=== PATIENT | female | born 2005 | race Two or more races ===

== ENCOUNTER 2024-12-31 07:44 | Inpatient (IN) | payer BC ==
[2024-12-31] VITALS (33 sets, daily range): BP systolic 114–147; BP diastolic 70–98; PULSE 105–125; RESP 15–35; TEMP 36.4–37.5; O2SAT 96–100
[~2024-12-31] VITALS: Ht 170.2 cm; Wt 68.0 kg
[2024-12-31] MEDS ORDERED: DEXTROSE 50% WATER 50ML SYRINGE IV PRN (08:00)
[2024-12-31] MEDS ORDERED: BLOOD SUGAR DIAGNOSTIC STRIP TEST PRN ×2 (08:00→11:30)
[2024-12-31] MEDS: SODIUM CHLORIDE 0.9% 1,000 ML IV ONE (08:36)
[2024-12-31 08:37] LABS: BASOPHILS % 0.3 % (0.0-2.0); DIFFERENTIAL COMMENT 0; EOSINOPHILS % 0.1 % (0.0-5.0); HEMATOCRIT. 46.9 % (36.0-48.0); HEMOGLOBIN. 14.8 g/dL (12.0-16.0); LYMPHOCYTES % 7.9 % (20.0-50.0); MEAN CORPUSCULAR HEMOGLOBIN 31.6 pg (28.0-32.0); MEAN CORPUSCULAR HGB CONC 31.6 g/dL (31.0-37.0); MEAN CORPUSCULAR VOLUME 100.1 fL (81.0-99.0); MONOCYTES % 4.2 % (2.0-8.0); NEUTROPHILS % 87.5 % (40.0-76.0); PLATELET 666 x1000/uL (130-400); RED BLOOD CELL COUNT 4.69 mill/uL (4.2-5.4); RED CELL DISTRIBUTION WIDTH 14.8 % (11.6-14.6); WHITE BLOOD COUNT 24.5 x1000/uL (4.5-11.0)
[2024-12-31 08:39] LABS: CHLORIDE 102 mEq/L (98-107); POTASSIUM 4.5 mEq/L (3.5-5.1); SODIUM 133 mEq/L (136-145)
[2024-12-31] MEDS: BLOOD SUGAR DIAGNOSTIC STRIP TEST SCH ×2 (08:44→11:28)
[2024-12-31 08:47] LABS: PHOSPHORUS 5.1 mg/dL (2.5-4.9)
[2024-12-31] MEDS: SODIUM CHLORIDE 0.9% (SEPSIS BOLUS) IV ONE (09:00)
[2024-12-31] MEDS ORDERED: VANCOMYCIN 1000MG/250ML 250 ML IV SCH (09:00)
[2024-12-31 09:14] LABS: CHLORIDE 102 mEq/L (98-107); POTASSIUM 4.8 mEq/L (3.5-5.1); SODIUM 134 mEq/L (136-145)
[2024-12-31 09:15] LABS: CALCIUM 9.6 mg/dL (8.7-10.4)
[2024-12-31 09:20] LABS: CREATININE 1.4 mg/dL (0.6-1.0); UREA NITROGEN BLOOD 9 mg/dL (9-23)
[2024-12-31 09:21] LABS: CARBON DIOXIDE < 10 mEq/L (21-32); LACTIC ACID 2.7 mmol/L (0.4-2.0)
[2024-12-31 09:22] LABS: ALANINE AMINOTRANSFERASE 20 IU/L (10-49); ALBUMIN 5.1 g/dL (3.2-4.8); ASPARTATE AMINOTRANSFERASE 22 IU/L (<34); BILIRUBIN TOTAL 0.4 mg/dL (0.1-1.0); PROTEIN TOTAL 9.2 g/dL (6.0-8.3)
[2024-12-31 09:25] LABS: CLARITY URINE CLEAR (CLEAR); COLOR URINE YELLOW (YELLOW); GLUCOSE URINE 3+ (NEGATIVE); KETONES URINE 4+ (NEGATIVE); LEUKOCYTE ESTERASE URINE 1+ (NEGATIVE); NITRITE URINE NEGATIVE (NEGATIVE); OCCULT BLOOD URINE 1+ (NEGATIVE); PROTEIN URINE 2+ (NEGATIVE); SPECIFIC GRAVITY URINE 1.023 (1.005-1.030); UROBILINOGEN URINE 0.2 E.U./dL (0.2-1.0)
[2024-12-31 09:29] LABS: BG BASE EXCESS -28.8 mmol/L (-2.0-3.0); BG CARBOXYHEMOGLOBIN 0.7 % (0.5-1.5); BG DEOXYHEMOGLOBIN 1.4 % (0.0-5.0); BG FRACTION INSPIRED OXYGEN 28; BG HCO3 ACT 2.3 mmol/L (21.0-28.0); BG METHEMOGLOBIN 0.2 % (0.5-1.5); BG OXYGEN SATURATION 98.6 % (94.0-98.0); BG OXYHEMOGLOBIN 97.7 % (94.0-98.0); BG PCO2 11.2 mmHg (32.0-45.0); BG PH 6.922 (7.350-7.450); BG PO2 152.9 mmHg (83.0-108.0); BG SAMPLE SITE RIGHT RADIAL; BG TOTAL HEMOGLOBIN 14.4 g/dL (12.0-16.0); BG VENT MODE NASAL CANNULA
[2024-12-31 09:29] LABS: CARBON DIOXIDE < 10 mEq/L (21-32); GLUCOSE 585 mg/dL (70-105)
[2024-12-31] MEDS ORDERED: INSULIN REGULAR (DRIP) 100 UNITS in SODIUM CHLORIDE 0.9% 99 ML IV SCH (09:30)
[2024-12-31 09:38] LABS: BACTERIA URINE TRACE; RBC URINE 0-2 /hpf (0-2); SQUAMOUS EPITHELIAL CELL URINE 2+ /lpf (RARE/1+); YEAST URINE RARE
[2024-12-31 09:40] LABS: BETA HYDROXYBUTYRATE 9.1 mMol/L (0.0-0.3)
[2024-12-31] MEDS ORDERED: PIPERACILLIN/TAZO 3.375G/100ML 100 ML IV SCH (10:00)
[2024-12-31] MEDS: ONDANSETRON HCL 4MG/2ML INJ IV ONE (10:17)
[2024-12-31] MEDS: INSULIN REGULAR 100U/100ML PMX 100 ML IV ONE (10:55)
[2024-12-31] MEDS: PIPERACILLIN/TAZO 3.375G/50ML 50 ML IV SCH (11:22)
[2024-12-31] MEDS: VANCOMYCIN 1G PREMIX 250 ML IV SCH (11:26)
[2024-12-31] MEDS: SODIUM CHLORIDE 0.9% 1,000 ML IV SCH (11:28)
[2024-12-31] MEDS ORDERED: SODIUM BICARBONATE 8.4% 50MEQ/50ML SYR IV NR (11:45)
[2024-12-31 11:53] LABS: BG BASE EXCESS -31.6 mmol/L (-2.0-3.0); BG CARBOXYHEMOGLOBIN 0.3 % (0.5-1.5); BG DEOXYHEMOGLOBIN 1.4 % (0.0-5.0); BG FRACTION INSPIRED OXYGEN 28; BG HCO3 ACT 1.9 mmol/L (21.0-28.0); BG METHEMOGLOBIN 0.2 % (0.5-1.5); BG OXYGEN SATURATION 98.6 % (94.0-98.0); BG OXYHEMOGLOBIN 98.1 % (94.0-98.0); BG PCO2 11.9 mmHg (32.0-45.0); BG PH 6.813 (7.350-7.450); BG PO2 158.5 mmHg (83.0-108.0); BG SAMPLE SITE RIGHT RADIAL; BG TOTAL HEMOGLOBIN 14.7 g/dL (12.0-16.0); BG VENT MODE NASAL CANNULA
[2024-12-31] MEDS: SODIUM BICARBONATE 8.4% 50MEQ/50ML SYR IV ONE (13:06)
[2024-12-31 14:05] LABS: CHLORIDE 113 mEq/L (98-107); SODIUM 140 mEq/L (136-145)
[2024-12-31] MEDS: KCL 20MEQ/100ML PREMIX 100 ML IV PRN (14:08)
[2024-12-31 14:11] LABS: CREATININE 1.1 mg/dL (0.6-1.0); GLUCOSE 352 mg/dL (70-105); UREA NITROGEN BLOOD 7 mg/dL (9-23)
[2024-12-31 14:13] LABS: PHOSPHORUS 3.3 mg/dL (2.5-4.9)
[2024-12-31 14:40] LABS: CARBON DIOXIDE < 10 mEq/L (21-32)
[2024-12-31] MEDS: MAGNESIUM 2 G PREMIX 50 ML IV PRN (15:45)
[2024-12-31] MEDS: DEXT 5%/0.9% NACL 1,000 ML IV SCH (15:46)
[2024-12-31 16:37] LABS: CHLORIDE 113 mEq/L (98-107); POTASSIUM 3.8 mEq/L (3.5-5.1); SODIUM 141 mEq/L (136-145)
[2024-12-31 16:39] LABS: CALCIUM 7.8 mg/dL (8.7-10.4)
[2024-12-31 16:43] LABS: GLUCOSE 269 mg/dL (70-105)
[2024-12-31 16:44] LABS: UREA NITROGEN BLOOD 7 mg/dL (9-23)
[2024-12-31] MEDS: POTASSIUM CHLORIDE 20MEQ/PACKET PO NR (17:00)
[2024-12-31 17:01] LABS: CARBON DIOXIDE < 10 mEq/L (21-32)
[2024-12-31] MEDS: INSULIN REGULAR 100U/100ML PMX 100 ML IV SCH (18:09)
[2024-12-31] MEDS: SODIUM BICARBONATE 8.4% 50MEQ/50ML SYR IV NR (21:04)
[2024-12-31 22:15] LABS: CHLORIDE 118 mEq/L (98-107); POTASSIUM 3.3 mEq/L (3.5-5.1); SODIUM 144 mEq/L (136-145)
[2024-12-31 22:17] LABS: CALCIUM 8.4 mg/dL (8.7-10.4)
[2024-12-31 22:21] LABS: CREATININE 0.9 mg/dL (0.6-1.0); GLUCOSE 163 mg/dL (70-105); UREA NITROGEN BLOOD 6 mg/dL (9-23)
[2024-12-31 22:24] LABS: CARBON DIOXIDE 10 mEq/L (21-32)
[2024-12-31 22:28] LABS: LACTIC ACID 2.4 mmol/L (0.4-2.0)
[2024-12-31 22:56] LABS: PHOSPHORUS 0.7 mg/dL (2.5-4.9)
[2024-12-31] MEDS: POTASSIUM CHLORIDE 40 MEQ in SODIUM CHLORIDE 0.9% 230 ML IV PRN (23:17)
[2024-12-31] MEDS: POTASSIUM PHOSPHATE 30 MMOL in DEXT 5% WATER 490 ML IV NR (23:46)
[2025-01-01] VITALS (58 sets, daily range): BP systolic 107–135; BP diastolic 68–97; PULSE 95–122; RESP 12–23; TEMP 36.6–37.2; O2SAT 94–100
[2025-01-01 01:10] LABS: CHLORIDE 118 mEq/L (98-107); POTASSIUM 3.2 mEq/L (3.5-5.1); SODIUM 145 mEq/L (136-145)
[2025-01-01 01:11] LABS: CALCIUM 7.5 mg/dL (8.7-10.4); CARBON DIOXIDE 15 mEq/L (21-32)
[2025-01-01 01:16] LABS: CREATININE 0.8 mg/dL (0.6-1.0); GLUCOSE 129 mg/dL (70-105); UREA NITROGEN BLOOD 7 mg/dL (9-23)
[2025-01-01 01:45] LABS: PHOSPHORUS 0.6 mg/dL (2.5-4.9)
[2025-01-01 05:50] LABS: BASOPHILS % 0.1 % (0.0-2.0); EOSINOPHILS % 0.1 % (0.0-5.0); HEMATOCRIT. 32.7 % (36.0-48.0); LYMPHOCYTES % 9.2 % (20.0-50.0); MEAN CORPUSCULAR HEMOGLOBIN 31.9 pg (28.0-32.0); MEAN CORPUSCULAR HGB CONC 33.6 g/dL (31.0-37.0); MEAN CORPUSCULAR VOLUME 94.9 fL (81.0-99.0); MEAN PLATELET VOLUME 7.4 fl (7.4-10.4); MONOCYTES % 11.2 % (2.0-8.0); NEUTROPHILS % 79.4 % (40.0-76.0); PLATELET 400 x1000/uL (130-400); RED BLOOD CELL COUNT 3.45 mill/uL (4.2-5.4); WHITE BLOOD COUNT 14.5 x1000/uL (4.5-11.0)
[2025-01-01 06:27] LABS: CALCIUM 7.6 mg/dL (8.7-10.4); CHLORIDE 118 mEq/L (98-107); POTASSIUM 3.7 mEq/L (3.5-5.1); SODIUM 145 mEq/L (136-145)
[2025-01-01 06:28] LABS: CARBON DIOXIDE 15 mEq/L (21-32)
[2025-01-01 06:33] LABS: CREATININE 0.7 mg/dL (0.6-1.0); GLUCOSE 244 mg/dL (70-105); UREA NITROGEN BLOOD 6 mg/dL (9-23)
[2025-01-01 06:37] LABS: PHOSPHORUS 1.1 mg/dL (2.5-4.9)
[2025-01-01] MEDS: SODIUM PHOSPHATE 15 MMOL in SODIUM CHLORIDE 0.9% 245 ML IV PRN (06:39)
[2025-01-01] MEDS: FAMOTIDINE 20MG/2ML VIAL IV SCH (08:08)
[2025-01-01] MEDS ORDERED: PANTOPRAZOLE SODIUM 40 MG/VIAL IV SCH (09:00)
[2025-01-01 09:15] LABS: BG BASE EXCESS -9.8 mmol/L (-2.0-3.0); BG CARBOXYHEMOGLOBIN 0.8 % (0.5-1.5); BG DEOXYHEMOGLOBIN 1.5 % (0.0-5.0); BG HCO3 ACT 14.1 mmol/L (21.0-28.0); BG METHEMOGLOBIN 0.3 % (0.5-1.5); BG OXYGEN SATURATION 98.5 % (94.0-98.0); BG OXYHEMOGLOBIN 97.4 % (94.0-98.0); BG PCO2 25.5 mmHg (32.0-45.0); BG PH 7.359 (7.350-7.450); BG PO2 111.2 mmHg (83.0-108.0); BG SAMPLE SITE RIGHT RADIAL; BG TOTAL HEMOGLOBIN 11.5 g/dL (12.0-16.0); BG TOTAL RESPIRATORY RATE 18 b/min; BG VENT MODE ROOM AIR
[2025-01-01 09:23] LABS: CHLORIDE 118 mEq/L (98-107); POTASSIUM 3.2 mEq/L (3.5-5.1); SODIUM 144 mEq/L (136-145)
[2025-01-01 09:24] LABS: CARBON DIOXIDE 16 mEq/L (21-32)
[2025-01-01 09:25] LABS: CALCIUM 7.3 mg/dL (8.7-10.4)
[2025-01-01 09:29] LABS: CREATININE 0.6 mg/dL (0.6-1.0); GLUCOSE 283 mg/dL (70-105)
[2025-01-01 09:30] LABS: UREA NITROGEN BLOOD < 5 mg/dL (9-23)
[2025-01-01 09:32] LABS: PHOSPHORUS 1.3 mg/dL (2.5-4.9)
[2025-01-01] MEDS: MAGNESIUM 2 G PREMIX 50 ML IV NR (10:14)
[2025-01-01] MEDS: POTASSIUM CHLORIDE 20MEQ TABLET SR PO NR ×2 (10:14→23:42)
[2025-01-01] MEDS: POTASSIUM PHOSPHATE 15 MMOL in DEXT 5% WATER 245 ML IV NR (11:16)
[2025-01-01] MEDS ORDERED: DEXTROSE 50% WATER 50ML SYRINGE IV PRN (11:30)
[2025-01-01] MEDS: BLOOD SUGAR DIAGNOSTIC STRIP TEST SCH (11:33)
[2025-01-01] MEDS: INSULIN LISPRO 100 UNITS/ML SUBCUT SCH ×2 (11:37→11:38)
[2025-01-01] MEDS: INSULIN GLARGINE 100 UNITS/ML SUBCUT SCH (11:37)
[2025-01-01] MEDS: LEVOFLOXACIN 750MG PREMIX 150 ML IV SCH (16:02)
[2025-01-01 22:31] LABS: CHLORIDE 110 mEq/L (98-107); POTASSIUM 3.2 mEq/L (3.5-5.1); SODIUM 140 mEq/L (136-145)
[2025-01-01 22:32] LABS: CALCIUM 8.3 mg/dL (8.7-10.4); CARBON DIOXIDE 18 mEq/L (21-32)
[2025-01-01 22:37] LABS: CREATININE 0.6 mg/dL (0.6-1.0); GLUCOSE 138 mg/dL (70-105); UREA NITROGEN BLOOD < 5 mg/dL (9-23)
[2025-01-01 23:48] LABS: PHOSPHORUS 1.6 mg/dL (2.5-4.9)
[2025-01-02] VITALS: BP 128/85; PULSE 100; RESP 19; TEMP 36.9; O2SAT 98
[2025-01-02] MEDS: POTASSIUM PHOSPHATE 30 MMOL in SODIUM CHLORIDE 0.9% 490 ML IV SCH (03:58)
[2025-01-02 04:00] VITALS: BP 130/80; PULSE 99; RESP 17; TEMP 36.5; O2SAT 98
[2025-01-02 07:59] LABS: CHLORIDE 114 mEq/L (98-107); POTASSIUM 3.8 mEq/L (3.5-5.1); SODIUM 144 mEq/L (136-145)
[2025-01-02 08:00] VITALS: BP 122/76; PULSE 95; RESP 18; TEMP 36.4; O2SAT 99
[2025-01-02 08:00] LABS: CALCIUM 7.9 mg/dL (8.7-10.4); CARBON DIOXIDE 20 mEq/L (21-32)
[2025-01-02 08:05] LABS: CREATININE 0.5 mg/dL (0.6-1.0); GLUCOSE 149 mg/dL (70-105); UREA NITROGEN BLOOD < 5 mg/dL (9-23)
[2025-01-02 08:08] LABS: PHOSPHORUS 3.1 mg/dL (2.5-4.9)
[2025-01-02 09:01] LABS: BASOPHILS % 0.6 % (0.0-2.0); EOSINOPHILS % 5.1 % (0.0-5.0); HEMATOCRIT. 34.3 % (36.0-48.0); HEMOGLOBIN. 11.6 g/dL (12.0-16.0); MEAN CORPUSCULAR HGB CONC 33.8 g/dL (31.0-37.0); MEAN CORPUSCULAR VOLUME 91.7 fL (81.0-99.0); MEAN PLATELET VOLUME 7.4 fl (7.4-10.4); MONOCYTES % 7.2 % (2.0-8.0); NEUTROPHILS % 56.1 % (40.0-76.0); PLATELET 392 x1000/uL (130-400); RED BLOOD CELL COUNT 3.74 mill/uL (4.2-5.4)
[2025-01-02] MEDS: SODIUM CHLORIDE 0.45% 1,000 ML IV SCH (09:23)
[2025-01-02 11:43] VITALS: BP 122/76; PULSE 95; TEMP 97.5; O2SAT 99
== END 2025-01-02 12:17 | disposition home or self-care (01) | DRG 720 ==
LOC: ER2 07:44 → EDBEDREQ 07:58 → MICUNO 09:44 → EDBEDREQ 09:51 → EDBEDREQSVC 09:51 → 6EST 01-01 18:27
PROVIDERS: ADMIT Internal Medicine; ATTEND Internal Medicine
DX: A40.1 Sepsis due to streptococcus, group B (principal); G93.41 Metabolic encephalopathy; E10.10 Type 1 diabetes mellitus with ketoacidosis without coma; I10 Essential (primary) hypertension; N17.9 Acute kidney failure, unspecified; E83.39 Other disorders of phosphorus metabolism; N39.0 Urinary tract infection, site not specified; D75.839 Thrombocytosis, unspecified; E83.42 Hypomagnesemia; Z96.41 Presence of insulin pump (external) (internal); Z83.3 Family history of diabetes mellitus; Z88.0 Allergy status to penicillin; Z79.4 Long term (current) use of insulin
CPT/HCPCS: 36415; 36600; 71045; 80048; 80051; 80053; 81003; 82010; 82375; 82803; 82805; 82962; 83036; 83605; 83735; 83930; 84100; 84145; 85025; 87077; 93005; 99285; A4606; J1815; J1956; J2405; J2543; J3370; J3475; J3480; J3490; J7030; J7040; J7042; J7050; J7060